=== PATIENT | female | born 1955 | race Caucasian/White ===

== ENCOUNTER → 2016-11-29 | Outpatient (CLI) | payer OTHER ==
--- NOTE | 2016-11-30 10:44 | MM ---
Reason for exam: screening (asymptomatic). Last mammogram was performed 2 years and 1 month ago. History: Patient is postmenopausal. Excisional biopsy of the right breast, June 13, 2005. Right Mammotome Panel of the right breast, June 01, 2005. Took hormonal contraceptives for 2 years beginning at age 19. Taking estrogen for 3 years. Taking progesterone for 3 years. Physical Findings: A clinical breast exam by your physician is recommended on an annual basis and results should be correlated with mammographic findings. MG 3D Screening Mammo W/Cad Bilateral CC and MLO view(s) were taken. Prior study comparison: November 03, 2014, bilateral MG screening mammo w CAD. December 03, 2012, bilateral digital screening mammo w/CAD. The breast tissue is heterogeneously dense. This may lower the sensitivity of mammography. There is chronic nodularity bilaterally. There is no dominant lesion. No significant changes when compared with prior studies. ASSESSMENT: Benign, BI-RAD 2 RECOMMENDATION: Routine screening mammogram of both breasts in 1 year.
== END | disposition home or self-care (01) ==
LOC: RADMAMWWP 07:24
PROVIDERS: ATTEND Obstetrics & Gynecology
DX: Z12.31 Encounter for screening mammogram for malignant neoplasm of breast (principal)
CPT/HCPCS: 77063; G0202

== ENCOUNTER 2020-02-13 20:30 | Emergency (ER) | payer BC ==
[2020-02-13] MEDS ORDERED: SODIUM CHLORIDE 0.9% 1,000 ML IV STA (21:07)
[2020-02-13 21:43] LABS: Basophils # (A) 0.1 k/uL (0-0.2); Basophils % (A) 1 %; Eosinophils # (A) 0.1 k/uL (0-0.7); Eosinophils % (A) 1 %; HCT 45.5 % (34.0-46.0); HGB 14.7 gm/dL (11.4-16.0); Lymphocytes % (A) 10 %; MCH 28.4 pg (25.0-35.0); MCHC 32.2 g/dL (31.0-37.0); MCV 88.2 fL (80.0-100.0); Mean Platelet Volume 7.7; Monocytes # (A) 0.8 k/uL (0-1.0); Monocytes % (A) 4 %; Neutrophils # (A) 16.6 k/uL (1.3-7.7); Neutrophils % (A) 84 %; Platelet Count 264 k/uL (150-450); RBC 5.16 m/uL (3.80-5.40); RDW 13.2 % (11.5-15.5); WBC 19.8 k/uL (3.8-10.6)
[2020-02-13 21:48] LABS: Appearance,Urine Clear (Clear); Bilirubin,Urine Negative (Negative); Blood,Urine Negative (Negative); Color,Urine Colorless; Glucose,Urine (UA) Negative (Negative); Ketones,Urine Negative (Negative); Leukocyte Esterase,Urine Negative (Negative); Nitrite,Urine Negative (Negative); PH, Urine 6.5 (5.0-8.0); Protein,Urine Negative (Negative); Specific Gravity,Urine 1.002 (1.001-1.035); Urobilinogen,Urine <2.0 mg/dL (<2.0)
[2020-02-13 21:58] LABS: ALT 14 U/L (4-34); AST 26 U/L (14-36); African American GFR (CKD) >90 (>60 ml/min/1.73 sqM); Albumin 4.3 g/dL (3.5-5.0); Alkaline Phosphatase 91 U/L (38-126); Amylase 50 U/L (30-110); Anion Gap 9 mmol/L; Blood Urea Nitrogen 20 mg/dL (7-17); Calcium 9.9 mg/dL (8.4-10.2); Carbon Dioxide 24 mmol/L (22-30); Chloride 102 mmol/L (98-107); Glucose 107 mg/dL (74-99); Non-African American GFR(CKD) >90 (>60 ml/min/1.73 sqM); Potassium 4.1 mmol/L (3.5-5.1); Sodium 135 mmol/L (137-145); Total Bilirubin 0.5 mg/dL (0.2-1.3)
--- NOTE | 2020-02-13 22:28 | ED ---
General Adult HPI - General Chief complaint: Abdominal Pain Stated complaint: Abdominal pain Time Seen by Provider: 02/13/20 20:48 Source: patient, RN notes reviewed Mode of arrival: ambulatory Limitations: no limitations - History of Present Illness Initial comments: 64-year-old female with a past medical history of hypertension presents to the emergency department for a chief complaint of abdominal pain. Patient states she has had left lower quadrant abdominal pain starting yesterday. Patient thinks she is constipated. Patient reports that a couple days ago she had a normal bowel movement however since then has had very small solid stools. P atient states she can feel that she has to have a bowel movement but is unable to do so. She denies nausea or vomiting. Denies fevers or chills. Patient has no other complaints at this time including shortness of breath, chest pain, nausea or vomiting, headache, or visual changes. - Related Data Previous Rx's Medication Instructions Recorded Amoxicillin/Potassium Clav 1 tab PO Q12HR #20 tab 02/13/20 [Augmentin 875-125 Tablet] Allergies Allergy/AdvReac Type Severity Reaction Status Date / Time No Known Allergies Allergy Verified 02/13/20 20:38 Review of Systems ROS Statement: Those systems with pertinent positive or pertinent negative responses have been documented in the HPI. ROS Other: All systems not noted in ROS Statement are negative. Past Medical History Past Medical History: Hypertension History of Any Multi-Drug Resistant Organisms: None Reported Past Surgical History: Appendectomy Past Psychological History: No Psychological Hx Reported Smoking Status: Never smoker Past Alcohol Use History: None Reported Past Drug Use History: None Reported General Exam Limitations: no limitations General appearance: alert, in no apparent distress Head exam: Present: atraumatic, normocephalic, normal inspection Eye exam: Present: normal appearance, PERRL, EOMI. Absent: scleral icterus, conjunctival injection, periorbital swelling ENT exam: Present: normal exam, mucous membranes moist Neck exam: Present: normal inspection, full ROM. Absent: tenderness, meningismus, lymphadenopathy Respiratory exam: Present: normal lung sounds bilaterally. Absent: respiratory distress, wheezes, rales, rhonchi, stridor Cardiovascular Exam: Present: regular rate, normal rhythm, normal heart sounds. Absent: systolic murmur, diastolic murmur, rubs, gallop, clicks GI/Abdominal exam: Present: soft, tenderness (mild tenderness generalized in the lower abdomen), normal bowel sounds. Absent: distended, guarding, rebound, rigid Course Vital Signs 02/13/20 20:34 Temperature 98.6 F Pulse Rate 99 Respiratory 18 Rate Blood Pressure 174/83 O2 Sat by Pulse 98 Oximetry Medical Decision Making - Medical Decision Making Vitals are stable. CBC does show leukocytosis of 19 with a left shift. CMP unremarkable. Urinalysis is unremarkable. CT abdomen and pelvis with contrast shows fat stranding and wall thickening and inflammatory changes around the distal sigmoid colon consistent with acute diverticulitis. No drainable fluid collection. Mild constipation. Patient was treated with Augmentin. Patient refused pain medication several times. She'll be given Tylenol 3 for home. She will return here for any worsening symptoms. I did give her GI follow-up. Patient will return here for any worsening symptoms. I discussed her to return parameters with her and she is aware of complications of abscess formation or perforation. - Lab Data Result diagrams: 02/13/20 21:31 02/13/20 21:31 Lab Results 02/13/20 02/13/20 02/13/20 Range/Units 21:31 21:31 21:31 WBC 19.8 H (3.8-10.6) k/uL RBC 5.16 (3.80-5.40) m/uL Hgb 14.7 (11.4-16.0) gm/dL Hct 45.5 (34.0-46.0) % MCV 88.2 (80.0-100.0) fL MCH 28.4 (25.0-35.0) pg MCHC 32.2 (31.0-37.0) g/dL RDW 13.2 (11.5-15.5) % Plt Count 264 (150-450) k/uL Neutrophils % 84 % Lymphocytes % 10 % Monocytes % 4 % Eosinophils % 1 % Basophils % 1 % Neutrophils # 16.6 H (1.3-7.7) k/uL Lymphocytes # 2.0 (1.0-4.8) k/uL Monocytes # 0.8 (0-1.0) k/uL Eosinophils # 0.1 (0-0.7) k/uL Basophils # 0.1 (0-0.2) k/uL Sodium 135 L (137-145) mmol/L Potassium 4.1 (3.5-5.1) mmol/L Chloride 102 (98-107) mmol/L Carbon Dioxide 24 (22-30) mmol/L Anion Gap 9 mmol/L BUN 20 H (7-17) mg/dL Creatinine 0.71 (0.52-1.04) mg/dL Est GFR (CKD-EPI)AfAm >90 (>60 ml/min/1.73 sqM) Est GFR (CKD-EPI)NonAf >90 (>60 ml/min/1.73 sqM) Glucose 107 H (74-99) mg/dL Plasma Lactic Acid Broderick (0.7-2.0) mmol/L Calcium 9.9 (8.4-10.2) mg/dL Total Bilirubin 0.5 (0.2-1.3) mg/dL AST 26 (14-36) U/L ALT 14 (4-34) U/L Alkaline Phosphatase 91 (38-126) U/L Total Protein 7.0 (6.3-8.2) g/dL Albumin 4.3 (3.5-5.0) g/dL Amylase 50 (30-110) U/L Lipase 52 (23-300) U/L Urine Color Colorless Urine Appearance Clear (Clear) Urine pH 6.5 (5.0-8.0) Ur Specific [place] 1.002 (1.001-1.035) Urine Protein Negative (Negative) Urine Glucose (UA) Negative (Negative) Urine Ketones Negative (Negative) Urine Blood Negative (Negative) Urine Nitrite Negative (Negative) Urine Bilirubin Negative (Negative) Urine Urobilinogen <2.0 (<2.0) mg/dL Ur Leukocyte Esterase Negative (Negative) 02/13/20 Range/Units 21:31 WBC (3.8-10.6) k/uL RBC (3.80-5.40) m/uL Hgb (11.4-16.0) gm/dL Hct (34.0-46.0) % MCV (80.0-100.0) fL MCH (25.0-35.0) pg MCHC (31.0-37.0) g/dL RDW (11.5-15.5) % Plt Count (150-450) k/uL Neutrophils % % Lymphocytes % % Monocytes % % Eosinophils % % Basophils % % Neutrophils # (1.3-7.7) k/uL Lymphocytes # (1.0-4.8) k/uL Monocytes # (0-1.0) k/uL Eosinophils # (0-0.7) k/uL Basophils # (0-0.2) k/uL Sodium (137-145) mmol/L Potassium (3.5-5.1) mmol/L Chloride (98-107) mmol/L Carbon Dioxide (22-30) mmol/L Anion Gap mmol/L BUN (7-17) mg/dL Creatinine (0.52-1.04) mg/dL Est GFR (CKD-EPI)AfAm (>60 ml/min/1.73 sqM) Est GFR (CKD-EPI)NonAf (>60 ml/min/1.73 sqM) Glucose (74-99) mg/dL Plasma Lactic Acid Broderick 0.8 (0.7-2.0) mmol/L Calcium (8.4-10.2) mg/dL Total Bilirubin (0.2-1.3) mg/dL AST (14-36) U/L ALT (4-34) U/L Alkaline Phosphatase (38-126) U/L Total Protein (6.3-8.2) g/dL Albumin (3.5-5.0) g/dL Amylase (30-110) U/L Lipase (23-300) U/L Urine Color Urine Appearance (Clear) Urine pH (5.0-8.0) Ur Specific [place] (1.001-1.035) Urine Protein (Negative) Urine Glucose (UA) (Negative) Urine Ketones (Negative) Urine Blood (Negative) Urine Nitrite (Negative) Urine Bilirubin (Negative) Urine Urobilinogen (<2.0) mg/dL Ur Leukocyte Esterase (Negative) Disposition Clinical Impression: Diverticulitis Disposition: HOME SELF-CARE Condition: Good Instructions (If sedation given, give patient instructions): Diverticulitis (ED), Diverticulitis Diet (ED) Additional Instructions: Please take antibiotic as directed. Follow-up with GI by calling for an appointment in 1-2 days. If you have any worsening symptoms such as worsening abdominal pain, fevers, or unable to keep antibiotic down return to the emergency room immediately. Prescriptions: Amoxicillin/Potassium Clav [Augmentin 875-125 Tablet] 1 tab PO Q12HR #20 tab Is patient prescribed a controlled substance at d/c from ED?: No Referrals: Josseline Banks DO [Primary Care Provider] - 1-2 days Allen Purdy MD [STAFF PHYSICIAN] - 1-2 days Time of Disposition: 23:26
--- NOTE | 2020-02-13 22:46 | CT ---
EXAMINATION TYPE: CT abdomen pelvis w con DATE OF EXAM: 02/13/2020 COMPARISON: None HISTORY: Abdominal pain and constipation CT DLP: 516.7 mGycm Automated exposure control for dose reduction was used. CONTRAST: Performed with IV Contrast, patient injected with 100 mL of Isovue 300. Images were obtained from the diaphragm to the floor the pelvis with IV contrast. FINDINGS: Lung bases are clear. There is no pleural effusion. Heart size is normal. There is no pericardial eff usion. Liver spleen stomach pancreas gallbladder appear normal. Bile ducts are not dilated. There is no adrenal mass. Kidneys show satisfactory contrast opacification. There is no hydronephrosis. Ureter s are not dilated. There is no retroperitoneal adenopathy. Bladder distends smoothly. There is no corey dence of a pelvic mass. There is no inguinal hernia. Uterus is slightly retroflexed. Delayed images s how normal renal excretion. There is fat stranding in the pelvis around the distal sigmoid colon. There are multiple sigmoid dive rticula. There is some retained fecal material in the large bowel. Appendix is not seen. There is no sign of t hickened appendix. There is no evidence of free air. There is no ascites. Lumbar vertebra have normal spacing and alignment. Posterior elements are intact. The bony pelvis amber ears intact. Hip joint spaces are fairly normal. IMPRESSION: Fat stranding and wall thickening and inflammatory changes around the distal sigmoid colon consistent with acute diverticulitis. No drainable fluid collection. Mild constipation.
[2020-02-13] MEDS ORDERED: AMOXIC-POT CLAV 875MG STARTER PACK 2 TAB BTL PO STA (23:24)
[2020-02-13] MEDS ORDERED: ACET/COD 300 MG/30 MG STARTER PACK 6 TAB BTL PO STA (23:24)
[2020-02-14 10:28] VITALS: BP 146/81; PULSE 96; RESP 18; TEMP 98.5
== END 2020-02-14 00:04 | disposition home or self-care (01) ==
LOC: EC 20:30
DX: K57.92 Diverticulitis of intestine, part unspecified, without perforation or abscess without bleeding (principal); K59.00 Constipation, unspecified; D72.829 Elevated white blood cell count, unspecified; R93.5 Abnormal findings on diagnostic imaging of other abdominal regions, including retroperitoneum; Z90.49 Acquired absence of other specified parts of digestive tract; Z53.29 Procedure and treatment not carried out because of patient's decision for other reasons
CPT/HCPCS: 99284; 96360; 36415; 80053; 82150; 83605; 83690; 85025; 81003; 74177; Q9967

== ENCOUNTER → 2020-02-25 | Outpatient (CLI) | payer BC ==
--- NOTE | 2020-02-26 10:10 | MM ---
Reason for exam: screening (asymptomatic). Last mammogram was performed 3 years and 3 months ago. History: Patient is postmenopausal. Excisional biopsy of the right breast, June 13, 2005. Right Mammotome Panel of the right breast, June 01, 2005. Took hormonal contraceptives for 2 years beginning at age 19. Taking estrogen for 3 years. Taking progesterone for 3 years. Physical Findings: A clinical breast exam by your physician is recommended on an annual basis and results should be correlated with mammographic findings. MG Screening Mammo w CAD Bilateral CC and MLO view(s) were taken. Prior study comparison: November 29, 2016, bilateral MG 3d screening mammo w/cad. November 03, 2014, bilateral MG screening mammo w CAD. The breast tissue is heterogeneously dense. This may lower the sensitivity of mammography. Benign appearing bilateral calcifications. There is chronic nodularity in the left breast, stable. ASSESSMENT: Benign, BI-RAD 2 RECOMMENDATION: Routine screening mammogram of both breasts in 1 year.
== END | disposition home or self-care (01) ==
LOC: RADMAMWWP 16:13
PROVIDERS: ATTEND Family Medicine
DX: Z12.31 Encounter for screening mammogram for malignant neoplasm of breast (principal)
CPT/HCPCS: 77067

== ENCOUNTER 2020-04-22 09:25 | Day surgery (SDC) | payer BC ==
[2020-04-20 11:20] VITALS: BMI 22.8
[~2020-04-22 09:25] MED LIST: LACTATED RINGERS 1,000 ML IV SCH; ONDANSETRON 4 MG/2 ML VIAL IVP PRN
[2020-04-22 09:49] VITALS: TEMP 97
[2020-04-22] MEDS ORDERED: LIDOCAINE 1% INJ 10MG/ML (20 ML MDV) ONE (10:41)
[2020-04-22] MEDS ORDERED: PROPOFOL 10 MG/ML 20 ML VIAL IV ONE (10:41)
[2020-04-22] MEDS ORDERED: fentaNYL (PF) 50 MCG/ML 2 ML AMP ONE (10:41)
[2020-04-22] MEDS ORDERED: MIDAZOLAM 2 MG/2 ML VIAL ONE (10:41)
--- NOTE | 2020-04-22 11:17 | P.PCN ---
Date of Procedure: 04/22/20 Procedure(s) Performed: Brief history: Patient is a pleasant 64-year-old white female scheduled for an elective upper endoscopy as well as colonoscopy as a part of evaluation of GERD and recent episode of acute sigmoid diverticulitis. Procedure performed: Esophagogastroduodenoscopy with biopsy Colonoscopy Preoperative diagnosis: GERD Recent episode of sigmoid diverticulitis. Anesthesia: MAC Procedure: After informed consent was obtained from the patient was brought into the endoscopy unit and IV sedation was administered by anesthesia under continuous monitoring. Initially upper endoscopy was done. The Olympus GF 160 video endoscope was inserted inserted into the mouth and esophagus intubated without any difficulty and was gradually advanced into the stomach and duodenum and carefully examined. The bulb and second part of the duodenum appeared normal. The scope was then withdrawn into the stomach adequately insufflated with air and upon careful examination the antrum and body, cardia and fundus appeared normal. The scope was then withdrawn into the esophagus. The GE junction was located at 40 cm to the incisors. It appeared regular with no erythema erosions or ulcerations. Rest of the esophagus appeared normal. Patient tolerated the procedure well. At this time the patient continued to remain sedation. Initial digital rectal examination was normal. Olympus CF 160 video colonoscope was then inserted into the rectum and gradually advanced to the cecum without any difficulty. Careful examination was performed as the scope was gradually being withdrawn. The prep was excellent. The cecum, ascending colon, transverse colon, descending colon, sigmoid colon and rectum appeared normal. Retroflexion was performed in the rectum and no lesions were noted. At her left-sided diverticulosis seen. Patient tolerated the procedure well. Impression: 1. Upper endoscopy revealed antral erosive gastritis and LA grade a reflux esophagitis 2. Colonoscopy revealed scattered sigmoid diverticulosis. No evidence of colorectal neoplasia. Recommendations: Findings of this examination were discussed with the patient as well as a family. She was advised to follow with the biopsy results. Continue with Pepcid 40 mg daily and follow antireflux measures. She'll remain on a high- fiber diet and take fiber supplements a regular basis. She can have a repeat colonoscopy in 10 years.
[2020-04-22 11:43] VITALS: BP 148/84; PULSE 69; RESP 18
--- NOTE | 2020-04-24 12:09 | CDI ---
Date: 04.24.2020 CDS/Assistant To The Dean Name: Rabia Anthony Phone: If any questions, call Cassandra Sifuentes Player Piano Technician at [phone] Patient Name: Mely Avila Admit Date 04.22.20 Discharge Date: 04.22.20 ATTENTION: The [facility] Coding Staff appreciate your assistance in clarifying documentation. Please respond to the clarification below the line at the bottom and electronically sign. The [facility] Coding staff will review the response and follow-up if needed. Please note: Queries are made part of the Legal Health Record. If you have any questions, please contact the Player Piano Technician. Dear Dr. Butt In order to code to the greatest specificity and for the greatest reimbursement I need the following information: On your EGD procedure note you have documented procedure performed EGD w/biopsy", but the site of the biopsy is not documented in your description of procedure. Please document site of biopsy. Thank you for your kind consideration. Addendum done in EMR [facility] MTDD
== END 2020-04-22 12:02 | disposition home or self-care (01) ==
LOC: ORWHC2ENDO 09:25
PROVIDERS: ATTEND Internal Medicine Gastroenterology
DX: Z12.11 Encounter for screening for malignant neoplasm of colon (principal); K57.30 Diverticulosis of large intestine without perforation or abscess without bleeding; K29.00 Acute gastritis without bleeding; K21.0 Gastro-esophageal reflux disease with esophagitis; I10 Essential (primary) hypertension; E07.9 Disorder of thyroid, unspecified; Z90.49 Acquired absence of other specified parts of digestive tract; Z79.899 Other long term (current) drug therapy; Z79.890 Hormone replacement therapy
CPT/HCPCS: 88305; 45378; 43239; J2250; J2001; J3010; J2704

== ENCOUNTER → 2022-01-28 | Outpatient (CLI) | payer BC ==
--- NOTE | 2022-01-31 14:02 | MM ---
Reason for Exam: Screening (asymptomatic). Last mammogram was performed 1 year(s) and 11 month(s) ago. Patient History: Menarche at age 14. First Full-Term at age 19. Postmenopausal. Currently using Estrogen, for 3 years. Currently using Progesterone, for 3 years. Hormonal Contraceptives for 2 years from age 19 until age 21. 06/13/2005, Excisional Biopsy on the Right side. 06/01/2005, Core Biopsy on the Right side. Risk Values: Mag 5 year model risk: 1.7%. NCI Lifetime model risk: 6.0%. Prior Study Comparison: 11/03/2014 Bilateral Screening Mammogram, [facility]. 11/29/2016 Bilateral Screening Mammogram, [facility]. 02/25/2020 Bilateral Screening Mammogram, [facility]. Tissue Density: There are scattered fibroglandular densities. Findings: Analyzed By CAD. Focal asymmetry posterior upper outer quadrant right breast not well seen on the recent prior but appears to have been present on the 2014 exam. A benign etiology is favored and six-month follow-up is recommended. Otherwise, no significant change. Overall Assessment: Probably benign, BI-RAD 3 Management: Diagnostic Mammogram of the right breast in 6 months. 1. Patient should continue monthly self breast exams. 2. A clinical breast exam by your physician is recommended on an annual basis. 3. This exam should not preclude additional follow-up of suspicious palpable abnormalities. Electronically signed and approved by: Carine Garcia M.D. Radiologist
== END | disposition home or self-care (01) ==
LOC: RADMAMWWP 11:25
PROVIDERS: ATTEND Obstetrics & Gynecology
DX: Z12.31 Encounter for screening mammogram for malignant neoplasm of breast (principal); Z78.0 Asymptomatic menopausal state
CPT/HCPCS: 77063; 77067

== ENCOUNTER 2022-08-16 19:27 | Emergency (ER) | payer BC, MEDICARE ==
[2022-08-16 19:32] VITALS: PULSE 94; TEMP 98
[2022-08-16 19:53] VITALS: RESP 17
[2022-08-16 20:31] VITALS: BP 182/92
--- NOTE | 2022-08-16 20:32 | XR ---
EXAMINATION TYPE: XR Hip Complete LT DATE OF EXAM: 08/16/2022 7:56 PM INDICATION: Patient age:Female; 67 years old; Reason for study: fall; COMPARISON: CT 02/13/2020 TECHNIQUE: The left hip was examined in the frontal and lateral projections and a AP pelvis. FINDINGS: No evidence for acute process, joint dislocation or significant soft tissue swelling. Mild osteophyte formation of the superior acetabulum of the hips. IMPRESSION: 1. No evidence for acute process. 2. Mild hip osteoarthrosis.
--- NOTE | 2022-08-16 20:54 | ED ---
Head Injury HPI - General Chief complaint: Head Injury Stated complaint: fall Time Seen by Provider: 08/16/22 19:33 Source: patient, family Mode of arrival: ambulatory Limitations: no limitations - History of Present Illness Initial comments: This 67-year-old female presents with a complaint of a fall. She apparently slipped on a glass plate and fell down 4 somewhat steep steps. This occurred shortly prior to arrival. She didn't hit her left forehead as well as left cheek. There is no loss of consciousness, nausea, or vomiting. She denies any other neurologic complaints. She denies being on any blood thinners. She also complains of some pain into her left hip. She has a minor other areas of aches and pains diffusely. She apparently was seen at an urgent care and they sent her here for further evaluation. They also note that her blood pressure was fairly high with a systolic over 200. The patient denies any other complaints or modifying factors. - Related Data Home Medications Medication Instructions Recorded Confirmed Biotin 5 mg PO DAILY 04/20/20 04/20/20 Caffeine Tab 1 tab PO DAILY 04/20/20 04/20/20 Famotidine [Pepcid] 10 mg PO DAILY 04/20/20 04/20/20 Levothyroxine Sodium [Synthroid] 50 mcg PO DAILY 04/20/20 04/20/20 Multivitamins, Thera [Multivitamin 1 tab PO DAILY 04/20/20 04/20/20 (formulary)] Progesterone, Micronized 100 mg PO DAILY 04/20/20 04/20/20 [Progesterone] estradioL [Estrace] 0.5 mg PO DAILY 04/20/20 04/20/20 Allergies/Adverse reactions: Allergies Allergy/AdvReac Type Severity Reaction Status Date / Time No Known Allergies Allergy Verified 04/22/20 09:51 Review of Systems ROS Statement: Those systems with pertinent positive or pertinent negative responses have been documented in the HPI. ROS Other: All systems not noted in ROS Statement are negative. Past Medical History Past Medical History: Mitral Valve Prolapse (MVP), Thyroid Disorder Additional Past Medical History / Comment(s): hx MVP History of Any Multi-Drug Resistant Organisms: None Reported Past Surgical History: Appendectomy, Tubal Ligation Additional Past Surgical History / Comment(s): laser laparoscopy for cyst on ovaries Past Psychological History: No Psychological Hx Reported Smoking Status: Former smoker General Exam - General Exam Comments Initial Comments: GENERAL: The patient is well nourished and well hydrated. VITAL SIGNS: Heart rate, blood pressure, respiratory rate reviewed as recorded in nurse's notes. EYES: Pupils are round and reactive. Extraocular movements are intact. No conjunctival / lid redness or swelling. ENT: No external evidence of injury, swelling, or ecchymosis. Airway is patent. Throat is clear. Mild tenderness but no swelling noted to the left forehead and left cheek. NECK: Nontender. No swelling or evidence of injury. No subcutaneous emphysema. Trachea is midline. No thyroid mass. HEART: Regular rate and rhythm. Good peripheral pulses. LUNGS/CHEST: Breath sounds clear and equal bilaterally. No rales, rhonchi, or wheezes. No ecchymosis, subcutaneous emphysema, or tenderness. ABDOMEN: Abdomen soft without tenderness. No palpable masses or organomegaly. No peritoneal signs. No abdominal wall swelling or ecchymosis. EXTREMITIES: Minimal tenderness to the left hip with good range of motion. Normal muscle tone and function. No thoracolumbar tenderness. NEUROLOGIC: Sensation is grossly intact. Cranial nerve exam reveals face is symmetrical, tongue is midline, speech is clear. SKIN: No abrasions or ecchymosis is noted. No induration or masses noted. PSYCHIATRIC: Alert and oriented. Appropriate behavior and judgment. Limitations: no limitations Course Vital Signs 08/16/22 08/16/22 08/16/22 19:29 19:50 20:31 Temperature 98 F Pulse Rate 94 Respiratory 20 17 Rate Blood Pressure 207/107 194/115 182/92 O2 Sat by Pulse 100 Oximetry Medical Decision Making - Medical Decision Making The patient was seen and examined. All diagnostics are reviewed. An x-ray was taken of the left hip and this does not show any evidence of fracture. The patient also had a computed tomography scan of the brain as well as the facial bones and this does not show any acute process. Her blood pressure initially wa s fairly elevated but on recheck it is somewhat improved with a systolic of approximately 181. Clonidine 0.1 mg is ordered orally. Overall, it is felt as though she stable for discharge home. Fall precautions are discussed. Close follow-up with primary care recommended. She refuses any pain medications. Utilize Tylenol or Motrin at home if needed for any additional pain. Return parameters are discussed. She is also instructed to do a five-day blood pressure recheck at home and follow-up with her doctor with results for possible further medication adjustments. She does relate that she was told in the past to take blood pressure medication but she did not want to take them as she does not like to take medications. She does have a blood pressure cuff at home. She states that her blood pressure is always elevated when she goes to the doctor or dentist. Was pt. sent in by a medical professional or institution? @ -No Did you speak to anyone other than the patient for history? @ - Did you review nursing and triage notes? @ -Yes, agree Were old charts reviewed? @ -No Differential Diagnosis? @ -Head injury, concussion, intracranial hemorrhage EKG interpreted by me (3pts min.)? @ -[none] X-rays interpreted by me (1pt min.)? @ -Yes CT interpreted by me (1pt min.)? @ -[none] U/S interpreted by me (1pt. min.)? @ -[none] What testing was considered but not performed? (CT, X-rays, U/S, labs)? Why? @None What meds were considered but not given? Why? @ -[none] Did you discuss the management of the patient with other professionals? @ -No Did you reconcile home meds? @ -[none] Was smoking cessation discussed for >3mins.? @ -[none] Was critical care preformed (if so, how long)? @ -[none] Were there social determinants of health that impacted care today? How? (Homelessness, low income, unemployed, alcoholism, drug addiction, transportation, low edu. Level, literacy, decrease access to med. care, longterm, rehab)? @ -None Was there de-escalation of care discussed even if they declined? (Discuss DNR or withdrawal of care, Hospice)? @ -None What co-morbidities impacted this encounter? (DM, HTN, Smoking, COPD, CAD, Cancer, CVA, Hep., AIDS, mental health diagnosis, sleep apnea, morbid obesity)? @ -None Was patient admitted / discharged? @ -Discharge Undiagnosed new problem with uncertain prognosis? @ -New problem Drug Therapy requiring intensive monitoring for toxicity (Heparin, Nitro, Insulin, Cardizem)? @ -[none] Were any procedures done? @ -[none] Diagnosis/symptom? @ -As above Acute, or Chronic, or Acute on Chronic? @ -Acute Uncomplicated (without systemic symptoms) or Complicated (systemic symptoms)? @ -Uncomplicated Side effects of treatment? @ -[none] Exacerbation, Progression, or Severe Exacerbation] @ -Exacerbation Poses a threat to life or bodily function? @ -[no] Disposition Clinical Impression: Closed head injury, Fall, Contusion, hip, Facial contusion, Hypertension Disposition: HOME SELF-CARE Condition: Good Instructions (If sedation given, give patient instructions): Head Injury (ED), Fall Prevention (ED), Hip Contusion (ED), Hypertension (ED) Is patient prescribed a controlled substance at d/c from ED?: No Referrals: Wm Benítez MD [Primary Care Provider] - 1-2 days Time of Disposition: 21:23
[2022-08-16] MEDS ORDERED: cloNIDine HCL 0.1 MG TAB PO STA (21:03)
--- NOTE | 2022-08-16 21:11 | CT ---
EXAMINATION TYPE: CT brain wo con, CT facial bones wo con CT DLP: 1374.4 (accession [id number]), 1374.4 (combined) (accession [id number]) mGycm, Automated exposure control for dose reduction was used. DATE OF EXAM: 08/16/2022 8:55 PM COMPARISON: None. CLINICAL INDICATION:Female, 67 years old with history of Head trauma, mod-severe, fell, hit head. TECHNIQUE: Brain: Axial CT images of the brain were obtained with coronal and sagittal reformats created and rev iewed. Facial: Axial CT imaging of the face with sagittal and coronal reformats. Contrast used: None. Oral contrast used: None. FINDINGS: Brain: Extra-axial spaces: No abnormal extra-axial fluid collections. Ventricular system: Within normal limits Cerebral parenchyma: No acute intraparenchymal hemorrhage or mass effect. The ramsay-white junction is well differentiated. Cerebellum: Unremarkable. Mass effect: No evidence of midline shift. Intracranial vasculature: Atherosclerotic calcifications of the intracranial vessels. Soft tissues: Normal. Calvarium/osseous structures: No depressed skull fracture. Paranasal sinuses and mastoid air cells: Mild scattered paranasal sinus disease. Visualized orbits: Orbital contents are intact. Facial: There is no evidence of fracture, subluxation, dislocation, or significant soft tissue swelling. The orbital contents are unremarkable.The temporal-mandibular joints appear symmetric. IMPRESSION: No acute intracranial process. No evidence of facial bone fracture.
== END 2022-08-16 21:36 | disposition home or self-care (01) ==
LOC: EC 19:27
DX: S00.83XA Contusion of other part of head, initial encounter (principal); S70.00XA Contusion of unspecified hip, initial encounter; S09.90XA Unspecified injury of head, initial encounter; I10 Essential (primary) hypertension; E07.9 Disorder of thyroid, unspecified; Z79.890 Hormone replacement therapy; Z87.891 Personal history of nicotine dependence; W01.0XXA Fall on same level from slipping, tripping and stumbling without subsequent striking against object, initial encounter
CPT/HCPCS: 70450; 70486; 73502; 99284

== ENCOUNTER → 2022-08-26 | Outpatient (CLI) | payer MEDICARE ==
--- NOTE | 2022-08-26 09:24 | MM ---
Reason for Exam: Follow-up at short interval from prior study. Last screening mammogram was performed 7 month(s) ago. Patient History: Menarche at age 14. First Full-Term at age 19. Postmenopausal. Currently using Estrogen, for 3 years. Currently using Progesterone, for 3 years. Hormonal Contraceptives for 2 years from age 19 until age 21. 06/13/2005, Excisional Biopsy on the Right side. 06/01/2005, Core Biopsy on the Right side. Risk Values: Mag 5 year model risk: 1.7%. NCI Lifetime model risk: 5.7%. Prior Study Comparison: 11/29/2016 Bilateral Screening Mammogram, [facility]. 02/25/2020 Bilateral Screening Mammogram, [facility]. 01/28/2022 Bilateral MG 3D screening mammo w/cad, [facility]. Tissue Density: Right: The breast tissue is heterogeneously dense. This may lower the sensitivity of mammography. Findings: Analyzed By CAD. Persistent focal asymmetry posterior upper outer quadrant of the right breast. No new suspicious mass or suspicious calcifications. Overall Assessment: Incomplete: need additional imaging evaluation, BI-RAD 0 Management: Diagnostic Breast Ultrasound of the right breast. A clinical breast exam by your physician is recommended on an annual basis and results should be correlated with mammographic findings. This exam should not preclude additional follow-up of suspicious palpable abnormalities. Results were given to the patient verbally at the time of exam. Electronically signed and approved by: Olu Cain D.O.
--- NOTE | 2022-08-26 09:44 | USB ---
Patient History: Menarche at age 14. First Full-Term at age 19. Postmenopausal. Currently using Estrogen, for 3 years. Currently using Progesterone, for 3 years. Hormonal Contraceptives for 2 years from age 19 until age 21. 06/13/2005, Excisional Biopsy on the Right side. 06/01/2005, Core Biopsy on the Right side. Risk Values: Mag 5 year model risk: 1.7%. NCI Lifetime model risk: 5.7%. Prior Study Comparison: 11/29/2016 Bilateral Screening Mammogram, [facility]. 02/25/2020 Bilateral Screening Mammogram, [facility]. 01/28/2022 Bilateral MG 3D screening mammo w/cad, [facility]. Findings: The upper outer quadrant of the right breast, the axilla of the right breast and the retroareolar of the right breast were scanned. Targeted ultrasound of the upper outer quadrant of the right breast with additional evaluation the nipple and axilla was performed. No solid or cystic mass identified. Focal asymmetry likely represents dense breast tissue.. Overall Assessment: Negative, BI-RAD 1 Management: Screening Mammogram of both breasts in 6 months. A clinical breast exam by your physician is recommended on an annual basis and results should be correlated with mammographic findings. This exam should not preclude additional follow-up of suspicious palpable abnormalities. Results were given to the patient verbally at the time of exam. Electronically signed and approved by: Olu Cain D.O.
== END | disposition home or self-care (01) ==
LOC: RADMAMWWP 09:04
PROVIDERS: ATTEND Obstetrics & Gynecology
DX: R92.8 Other abnormal and inconclusive findings on diagnostic imaging of breast (principal); Z78.0 Asymptomatic menopausal state
CPT/HCPCS: 77065; 76642; G0279; 77061

== ENCOUNTER → 2024-11-12 | Outpatient (CLI) | payer MEDICARE ==
--- NOTE | 2024-11-12 13:49 | MM ---
Reason for Exam: Screening (asymptomatic). Last mammogram was performed 2 year(s) and 10 month(s) ago. Patient History: Menarche at age 14. First Full-Term at age 19. Postmenopausal. Patient has history of breast feeding. Currently using Estrogen, for 3 years. Currently using Progesterone, for 3 years. Hormonal Contraceptives for 2 years from age 19 until age 21. 06/13/2005, Excisional Biopsy on the Right side. 06/01/2005, Core Biopsy on the Right side. Risk Values: Mag 5 year model risk: 1.7%. NCI Lifetime model risk: 5.2%. Prior Study Comparison: 11/03/2014 Bilateral Screening Mammogram, [facility]. 11/29/2016 Bilateral Screening Mammogram, [facility]. 02/25/2020 Bilateral Screening Mammogram, [facility]. 01/28/2022 Bilateral MG 3D screening mammo w/cad, [facility]. 08/26/2022 Right MG 3D diag mammo w/cad RT, [facility]. Tissue Density: The breasts are heterogeneously dense, which may obscure small masses. Findings: Analyzed By CAD. Chronic nodularity posterior lateral right breast. There is no suspicious group of microcalcifications or new suspicious mass in either breast. Overall Assessment: Benign, BI-RAD 2 Management: Screening Mammogram of both breasts in 1 year. Patient should continue monthly self-breast exams. A clinical breast exam by your physician is recommended on an annual basis. This exam should not preclude additional follow-up of suspicious palpable abnormalities. Note on Mag scores and lifetime risk: 1. A Mag score greater than 3% is considered moderate risk. If this is the case, consider specialist referral to assess eligibility for a risk reducing agent. 2. If overall lifetime risk for the development of breast cancer is 20% or higher, the patient may qualify for future screening with alternating mammogram and breast MRI. [facility], , 11/12/2024 1:47 PM. Electronically signed and approved by: Carine Garcia M.D. Radiologist
== END | disposition home or self-care (01) ==
LOC: RADMAMWWP 09:15
PROVIDERS: ATTEND Family Medicine
DX: Z12.31 Encounter for screening mammogram for malignant neoplasm of breast (principal); R92.333 Mammographic heterogeneous density, bilateral breasts; Z78.0 Asymptomatic menopausal state; Z92.0 Personal history of contraception
CPT/HCPCS: 77067